=== PATIENT | male | born 1985 | race Caucasian/White ===

== ENCOUNTER → 2020-02-10 | Outpatient (CLI) | payer SELFPAY | LOC: M LABSMTC 10:29 | PROVIDERS: ATTEND Family Medicine | DX: Z20.828 Contact with and (suspected) exposure to other viral communicable diseases (principal) ==

== ENCOUNTER → 2020-11-25 | Outpatient (RCR) | payer OTHER | LOC: M PT 11-19 11:29 | PROVIDERS: ATTEND Orthopaedic Surgery Sports Medicine | DX: M75.41 Impingement syndrome of right shoulder (principal) ==

== ENCOUNTER 2020-12-03 09:30 | Outpatient (RCR) | payer OTHER | END 2020-12-25 | LOC: M PT 09:30 | PROVIDERS: ATTEND Orthopaedic Surgery Sports Medicine | DX: M75.41 Impingement syndrome of right shoulder (principal) ==

== ENCOUNTER → 2021-03-07 | Outpatient (REF) | LOC: M LABSMTC 10:36 | PROVIDERS: ATTEND Family Medicine | DX: Z20.822 Contact with and (suspected) exposure to COVID-19 (principal) ==

== ENCOUNTER → 2021-03-11 | Outpatient (REF) | LOC: M LABSMTC 10:18 | PROVIDERS: ATTEND Family Medicine | DX: Z20.822 Contact with and (suspected) exposure to COVID-19 (principal) ==

== ENCOUNTER → 2021-03-31 | Outpatient (REF) | LOC: M EMP 09:52 | PROVIDERS: ATTEND Family Medicine | DX: Z20.822 Contact with and (suspected) exposure to COVID-19 (principal) ==

== ENCOUNTER → 2021-04-03 | Outpatient (REF) | LOC: M LABSMTC 10:11 | PROVIDERS: ATTEND Family Medicine | DX: Z20.822 Contact with and (suspected) exposure to COVID-19 (principal) ==

== ENCOUNTER → 2021-06-24 | Outpatient (REF) ==
[2021-06-24 19:57] LABS: INFLUENZA A AMPLIFICATION NEGATIVE (NEGATIVE); INFLUENZA B AMPLIFICATION NEGATIVE (NEGATIVE)
== END ==
LOC: M EMP 18:40
PROVIDERS: ATTEND Nurse Practitioner Adult Health
DX: Z00.00 Encounter for general adult medical examination without abnormal findings (principal)

== ENCOUNTER → 2021-10-14 | Outpatient (CLI) | payer OTHER | LOC: M SOG 08:00 | PROVIDERS: ATTEND Orthopaedic Surgery | DX: Z47.89 Encounter for other orthopedic aftercare (principal) ==

== ENCOUNTER → 2021-11-24 | Outpatient (CLI) | payer OTHER | LOC: M PLAIMG 12:34 | PROVIDERS: ATTEND Orthopaedic Surgery | DX: M67.813 Other specified disorders of tendon, right shoulder (principal) ==

== ENCOUNTER 2024-05-26 15:47 | Emergency (ER) | payer OTHER, BC ==
[~2024-05-26] VITALS: Ht 182.9 cm; Wt 72.6 kg
[2024-05-26 15:49] VITALS: TEMP 97.1
[2024-05-26 17:14] VITALS: BP 126/56; O2SAT 98
[2024-05-26] MEDS: IBUPROFEN 600MG TAB PO ONE (17:24)
== END 2024-05-26 18:48 | disposition home or self-care (01) ==
LOC: M ED 15:47
DX: S93.402A Sprain of unspecified ligament of left ankle, initial encounter (principal); X50.0XXA Overexertion from strenuous movement or load, initial encounter; Y92.330 Ice skating rink (indoor) (outdoor) as the place of occurrence of the external cause; Y93.22 Activity, ice hockey; Y99.9 Unspecified external cause status

== ENCOUNTER → 2024-05-29 | Outpatient (CLI) | payer BC, OTHER | LOC: M PLAIMG 09:28 | PROVIDERS: ATTEND Physician Assistant | DX: M25.572 Pain in left ankle and joints of left foot (principal); S82.302A Unspecified fracture of lower end of left tibia, initial encounter for closed fracture; X58.XXXA Exposure to other specified factors, initial encounter; Y92.9 Unspecified place or not applicable; Y93.9 Activity, unspecified; Y99.9 Unspecified external cause status ==

== ENCOUNTER → 2024-06-29 | Outpatient (CLI) | payer BC, OTHER | LOC: M SOG 07:48 | PROVIDERS: ATTEND Physician Assistant | DX: S82.392D Other fracture of lower end of left tibia, subsequent encounter for closed fracture with routine healing (principal) ==

== ENCOUNTER → 2024-08-03 | Outpatient (CLI) | payer OTHER | LOC: M SOG 07:14 | PROVIDERS: ATTEND Physician Assistant | DX: S82.392D Other fracture of lower end of left tibia, subsequent encounter for closed fracture with routine healing (principal) ==